=== PATIENT | female | born 1975 | race Caucasian/White ===

== ENCOUNTER 2018-08-13 10:15 | Inpatient (IN) | payer OTHER ==
[~2018-08-13] VITALS: Ht 157.5 cm; Wt 61.2 kg
== END 2018-08-24 12:46 | disposition home or self-care (01) | DRG 621 ==
LOC: SURH 10:15 → O/R 08-23 07:49 → SURG-SUITE 08-23 15:06
PROVIDERS: ADMIT Plastic Surgery
PROC: 0J0P3ZZ Alteration of Left Lower Leg Subcutaneous Tissue and Fascia, Percutaneous Approach (ICD-10-PCS; 2018-08-23)
PROC: 0J0N3ZZ Alteration of Right Lower Leg Subcutaneous Tissue and Fascia, Percutaneous Approach (ICD-10-PCS; 2018-08-23)
PROC: 0W0F0ZZ Alteration of Abdominal Wall, Open Approach (ICD-10-PCS; principal; 2018-08-23 08:45)
DX: E65 Localized adiposity (principal); E88.1 Lipodystrophy, not elsewhere classified; M62 Other disorders of muscle; M62.051 Separation of muscle (nontraumatic), right thigh